=== PATIENT | male | born 1975 | race Caucasian/White ===

== ENCOUNTER 2018-04-18 22:28 | Outpatient (REF) | payer BC, SELFPAY ==
[2018-04-18 22:56] LABS: C-Reactive Protein 0.18 mg/dL (0.0-0.3)
[2018-04-18 23:53] LABS: ESR 3 MM/HR (0-15)
== END 2018-04-18 22:48 ==
LOC: NCHCN 22:28
PROVIDERS: PCP Internal Medicine; Visit Provider Internal Medicine
DX: K30 Functional dyspepsia (principal); M25.512 Pain in left shoulder
CPT/HCPCS: 85652; 86140

== ENCOUNTER 2018-07-24 22:58 | Outpatient (REF) | payer BC, SELFPAY ==
[2018-07-24 22:48] LABS: Anion Gap 8.7 mmol/L (3-11); BUN 15 mg/dL (7-18); CO2 27.3 mmol/L (21.0-32.0); CREATININE 1.16 mg/dL (0.70-1.30); Calcium 9.3 mg/dL (8.5-10.1); Chloride 103 mmol/L (98-107); Glucose 102 mg/dL (70-100); Potassium 4.9 mmol/L (3.5-5.1); Sodium 139 mmol/L (136-145)
== END 2018-07-24 23:18 ==
LOC: NCHCN 22:58
PROVIDERS: PCP Internal Medicine; Visit Provider Registered Nurse
DX: I10 Essential (primary) hypertension (principal)
CPT/HCPCS: 80048

== ENCOUNTER 2018-11-05 12:30 | Outpatient (REF) | payer BC, SELFPAY ==
[2018-11-07 15:35] LABS: Chlamydia Result Negative; GC Result Negative; Specimen Description URINE
== END 2018-11-05 12:50 ==
LOC: NCHCN 12:30
PROVIDERS: PCP Internal Medicine; Visit Provider Registered Nurse
DX: Z11.3 Encounter for screening for infections with a predominantly sexual mode of transmission (principal)
CPT/HCPCS: 87491; 87591

== ENCOUNTER 2019-01-14 12:58 | Outpatient (REF) | payer BC, SELFPAY ==
[2019-01-16 09:50] LABS: Syphilis Serology (RPR) Negative (Negative)
[2019-01-16 11:55] LABS: HIV-1/2 Ag & Ab Screen Negative (NEGAT)
[2019-01-16 15:09] LABS: Chlamydia Result Negative; GC Result Negative; Specimen Description URINE
== END 2019-01-14 13:18 ==
LOC: NCHCN 12:58
PROVIDERS: PCP Internal Medicine; Visit Provider Registered Nurse
DX: Z11.3 Encounter for screening for infections with a predominantly sexual mode of transmission (principal); Z11.4 Encounter for screening for human immunodeficiency virus [HIV]; Z11.59 Encounter for screening for other viral diseases
CPT/HCPCS: 86706; 86803; 87389; 87491; 87591; 86592; 86694; 86695; 86696

== ENCOUNTER 2019-05-05 10:54 | Outpatient (REF) | payer BC, SELFPAY ==
[2019-05-05 21:43] LABS: Hemoglobin A1C 5.9 % (3.8-5.6)
[2019-05-05 21:47] LABS: Calculated LDL 157 mg/dL (<100); Cholesterol 212 mg/dL (<200); HDL Cholesterol 40 mg/dL (40-60); Triglyceride 75 mg/dL (<150)
== END 2019-05-05 11:14 ==
LOC: NCHCN 10:54
PROVIDERS: PCP Registered Nurse; Visit Provider Registered Nurse
DX: E78.5 Hyperlipidemia, unspecified (principal); R25.1 Tremor, unspecified; Z13.1 Encounter for screening for diabetes mellitus; Z83.3 Family history of diabetes mellitus
CPT/HCPCS: 80061; 83036

== ENCOUNTER 2019-05-22 13:20 | Outpatient (REF) | payer BC, SELFPAY ==
[2019-05-22 22:05] LABS: Bacteria Negative HPF (Negative); C & S Indicated? No; Casts Negative LPF (Negative); Crystals Negative HPF (Negative); Epithelial Cells Negative HPF (Negative); Mucus Negative (Negative); Other Cells Negative (Negative); RBC Negative HPF (0-2); WBC 0-2 HPF (0-5)
== END 2019-05-22 13:40 ==
LOC: NCHCN 13:20
PROVIDERS: PCP Registered Nurse; Visit Provider Registered Nurse
DX: Z87.442 Personal history of urinary calculi (principal)
CPT/HCPCS: 81015

== ENCOUNTER 2019-08-04 12:47 | Outpatient (REF) | payer BC, SELFPAY | END 2019-08-04 13:07 | LOC: NCHCN 12:47 | PROVIDERS: PCP Registered Nurse; Visit Provider Nurse Practitioner Community Health | DX: R31.9 Hematuria, unspecified (principal) | CPT/HCPCS: 87077; 87086; 87186 ==

== ENCOUNTER 2019-08-25 22:17 | Outpatient (REF) | payer BC, SELFPAY ==
[2019-08-25 20:56] LABS: Abs Immature Grans 0.01 k/cumm (0.0-0.09); Absolute Basophil Count 0.03 k/cumm (0.0-0.2); Absolute Lymphocyte Count 1.51 k/cumm (1.2-3.4); Absolute Monocyte Count 0.62 k/cumm (0.11-0.7); Basophils % 0.4; Eosinophils % 2.6; HCT 44.6 % (40.0-50.0); HGB 15.3 g/dL (13.5-17.5); Immature Grans % 0.1 %; Lymphocytes % 19.9; Mean Corp. HGB Concentration 34.3 g/dL (32.0-36.0); Mean Corpuscular Hemoglobin 29.4 pg (27.0-33.0); Mean Corpuscular Volume 85.8 fL (80-95); Mean Platelet Volume 10.3 fL (8.0-11.0); Monocytes % 8.2; Neutrophils % 68.8; Platelet Count 340 x1000/uL (130-400); RBC Distribution Width 13.3 % (11.8-14.1); White Blood Cell Count 7.57 k/cumm (4.4-10.8)
[2019-08-25 21:12] LABS: Iron 100 ug/dL (65-175); Total Iron Binding Capacity 310 ug/dL (250-450); Transferrin Sat 32 % (20-55)
[2019-08-25 21:23] LABS: ALT 41 U/L (16-63); AST 22 U/L (15-37); Albumin 4.2 g/dL (3.4-5.0); Alkaline Phosphatase 54 U/L (46-116); Anion Gap 11.3 mmol/L (3-11); BUN 18 mg/dL (7-18); Bilirubin, Total 0.3 mg/dL (0.2-1.0); CO2 23.7 mmol/L (21.0-32.0); CREATININE 1.02 mg/dL (0.70-1.30); Calcium 8.7 mg/dL (8.5-10.1); Chloride 108 mmol/L (98-107); Ferritin 112 ng/mL (26-388); Glucose 97 mg/dL (74-106); Potassium 4.5 mmol/L (3.5-5.1); Sodium 143 mmol/L (136-145); TSH (W/Ref FT4) 0.95 uIU/mL (0.36-3.74)
== END 2019-08-25 22:37 ==
LOC: NCHCN 22:17
PROVIDERS: PCP Registered Nurse; Visit Provider Nurse Practitioner Community Health
DX: R19.7 Diarrhea, unspecified (principal); R31.9 Hematuria, unspecified; G47.62 Sleep related leg cramps
CPT/HCPCS: 80053; 87329; 87505; 82728; 83540; 83550; 84443; 85025; 87324

== ENCOUNTER 2020-12-01 12:13 | Outpatient (REF) | payer BC, SELFPAY ==
[2020-12-01 14:44] LABS: Anion Gap 10.5 mmol/L (3-11); BUN 14 mg/dL (7-18); CO2 23.5 mmol/L (21.0-32.0); CREATININE 1.1 mg/dL (0.70-1.30); Calcium 8.7 mg/dL (8.5-10.1); Calculated LDL 180 mg/dL (<100); Chloride 107 mmol/L (98-107); Cholesterol 235 mg/dL (<200); Glucose 102 mg/dL (74-106); HDL Cholesterol 42 mg/dL (40-60); Potassium 4.4 mmol/L (3.5-5.1); Sodium 141 mmol/L (136-145); Triglyceride 66 mg/dL (<150)
== END 2020-12-01 12:14 | disposition home or self-care (01) ==
LOC: NCHCN 12:13
PROVIDERS: PCP Registered Nurse; Visit Provider Registered Nurse
DX: E78.5 Hyperlipidemia, unspecified (principal); I10 Essential (primary) hypertension
CPT/HCPCS: 80048; 80061

== ENCOUNTER 2020-12-02 11:01 | Outpatient (REF) | payer BC, SELFPAY ==
[2020-12-06 15:32] LABS: Chlamydia Result Negative (Negative); GC Result Negative (Negative)
== END 2020-12-02 11:02 | disposition home or self-care (01) ==
LOC: NCHCN 11:01
PROVIDERS: PCP Registered Nurse; Referring Provider Registered Nurse; Visit Provider Registered Nurse
DX: Z11.3 Encounter for screening for infections with a predominantly sexual mode of transmission (principal)
CPT/HCPCS: 87491; 87591

== ENCOUNTER 2021-06-15 18:39 | Outpatient (REF) | payer BC, SELFPAY ==
[2021-06-15 21:48] LABS: HCT 45.6 % (40.0-50.0); HGB 15.2 g/dL (13.5-17.5); MCH 28.7 pg (27.0-33.0); MCHC 33.3 % (32.0-36.0); MCV 86.2 fL (80-95); MPV 10.2 fL (8.0-11.0); Platelet Count 308 10^3/uL (130-400); RBC 5.29 10^6/uL (4.36-5.78); RDW 12.6 % (11.8-14.1); RDW-SD 39.9 fL
[2021-06-15 22:11] LABS: ALT 43 U/L (16-63); AST 19 U/L (15-37); Albumin 4.4 g/dL (3.4-5.0); Alkaline Phosphatase 55 U/L (46-116); Anion Gap 8.5 mmol/L (3-11); BUN 21 mg/dL (7-18); Bilirubin, Total 0.3 mg/dL (0.2-1.0); CO2 25.5 mmol/L (21.0-32.0); CREATININE 1.2 mg/dL (0.70-1.30); Calcium 8.9 mg/dL (8.5-10.1); Chloride 106 mmol/L (98-107); Glucose 86 mg/dL (74-106); Potassium 4.6 mmol/L (3.5-5.1); Sodium 140 mmol/L (136-145); Total Protein 7.4 g/dL (6.4-8.2)
[2021-06-16 14:46] LABS: Vitamin B12 445 pg/mL (193-986)
== END 2021-06-15 18:40 | disposition home or self-care (01) ==
LOC: NCHCN 18:39
PROVIDERS: PCP Registered Nurse; Visit Provider Registered Nurse
DX: R19.7 Diarrhea, unspecified (principal); K90.9 Intestinal malabsorption, unspecified
CPT/HCPCS: 80053; 82306; 85027; 82607

== ENCOUNTER 2021-06-24 13:05 | Outpatient (REF) | payer BC, SELFPAY ==
[2021-06-26 10:42] LABS: HIV-1/2 Ag & Ab Screen Negative (Negative)
[2021-06-27 11:26] LABS: Syphilis Serology (RPR) Negative (Negative)
[2021-06-27 15:03] LABS: Chlamydia Result Negative (Negative); GC Result Negative (Negative)
== END 2021-06-24 13:06 | disposition home or self-care (01) ==
LOC: NCHCN 13:05
PROVIDERS: PCP Registered Nurse; Visit Provider Registered Nurse
DX: Z11.3 Encounter for screening for infections with a predominantly sexual mode of transmission (principal); Z11.4 Encounter for screening for human immunodeficiency virus [HIV]
CPT/HCPCS: 87389; 87491; 87591; 86592

== ENCOUNTER 2021-11-08 15:37 | Outpatient (REF) | payer BC, SELFPAY ==
[2021-11-08 21:36] LABS: C Diff PCR Negative (Negative)
[2021-11-10 00:08] LABS: Campylobacter PCR Negative (Negative); Salmonella PCR Negative (Negative); Shiga Toxin PCR Negative (Negative); Shigella/Enteroinvasive Ecoli Negative (Negative)
[2021-11-11 17:32] LABS: Giardia Ag, F Negative (Negative)
[2021-11-11 22:49] LABS: Calprotectin <50.0 mcg/g
[2021-11-12 18:05] LABS: Pancreatic Elastase, F 176 mcg/g
== END 2021-11-08 15:38 | disposition home or self-care (01) ==
LOC: LBN 15:37
PROVIDERS: PCP Registered Nurse; Visit Provider Nurse Practitioner
DX: R19.7 Diarrhea, unspecified (principal); R15.1 Fecal smearing; K92.1 Melena; R10.13 Epigastric pain; R14.0 Abdominal distension (gaseous); R11.0 Nausea
CPT/HCPCS: 87329; 87493; 87505; 82656; 83993

== ENCOUNTER 2022-06-30 14:58 | Outpatient (REF) | payer BC, SELFPAY ==
[2022-07-01 14:23] LABS: Chlamydia Result Negative (Negative); GC Result Negative (Negative)
== END 2022-06-30 14:59 | disposition home or self-care (01) ==
LOC: NCHCN 14:58
PROVIDERS: PCP Registered Nurse; Visit Provider Family Medicine
DX: Z11.3 Encounter for screening for infections with a predominantly sexual mode of transmission (principal)
CPT/HCPCS: 87491; 87591

== ENCOUNTER 2022-07-05 15:44 | Outpatient (REF) | payer BC, SELFPAY ==
[2022-07-05 16:16] LABS: Hemoglobin A1C 5.9 % (<5.7)
[2022-07-05 16:24] LABS: Anion Gap 6.5 mmol/L (3-11); BUN 20 mg/dL (7-18); CO2 27.5 mmol/L (21.0-32.0); CREATININE 1.3 mg/dL (0.70-1.30); Calcium 9.2 mg/dL (8.5-10.1); Calculated LDL 169 mg/dL (<100); Chloride 106 mmol/L (98-107); Cholesterol 235 mg/dL (<200); Estimated GFR 68.19 (mL/min/1.73m2); Glucose 109 mg/dL (74-106); HDL Cholesterol 48 mg/dL (40-60); Potassium 4.9 mmol/L (3.5-5.1); Sodium 140 mmol/L (136-145); Triglyceride 94 mg/dL (<150)
[2022-07-05 17:18] LABS: Vitamin D 25 Total 17.1 ng/mL (30-100)
== END 2022-07-05 15:45 | disposition home or self-care (01) ==
LOC: NCHCN 15:44
PROVIDERS: PCP Registered Nurse; Visit Provider Registered Nurse
DX: R73.03 Prediabetes (principal); I10 Essential (primary) hypertension; E55.9 Vitamin D deficiency, unspecified
CPT/HCPCS: 80048; 80061; 82306; 83036

== ENCOUNTER 2023-07-10 14:34 | Outpatient (REF) | payer BC, SELFPAY ==
[2023-07-10 21:22] LABS: Anion Gap 11.9 mmol/L (3-11); BUN 14 mg/dL (7-18); CO2 24.1 mmol/L (21.0-32.0); CREATININE 1.1 mg/dL (0.70-1.30); Calcium 9.1 mg/dL (8.5-10.1); Chloride 107 mmol/L (98-107); Estimated GFR 82.81 (mL/min/1.73m2); Glucose 96 mg/dL (74-106); Sodium 143 mmol/L (136-145)
[2023-07-10 21:44] LABS: Hemoglobin A1C 5.9 % (<5.7)
[2023-07-12 13:28] LABS: Calculated LDL 115 mg/dL (<160); Cholesterol 200 mg/dL (<200); HDL Cholesterol 41 mg/dL (>or=40); Triglyceride 219 mg/dL (<or=150)
== END 2023-07-10 14:35 | disposition home or self-care (01) ==
LOC: NCHCN 14:34
PROVIDERS: PCP Registered Nurse; Visit Provider Family Medicine
DX: R73.03 Prediabetes (principal); E78.5 Hyperlipidemia, unspecified
CPT/HCPCS: 80048; 80061; 83036

== ENCOUNTER 2023-12-09 14:46 | Emergency (ER) | payer BC, SELFPAY ==
[2023-12-09 14:51] VITALS: BP 145/80; PULSE 83; RESP 88; TEMP 36.8; O2SAT 98
[2023-12-09 15:00] VITALS: O2SAT 100
--- NOTE | 2023-12-09 15:00 | DI.CT_ITS ---
Exam(s) CT RENAL COLIC WO EXAM: CT RENAL COLIC WO CLINICAL HISTORY: flank pain. TECHNIQUE: Imaging Protocol: Axial computed tomography images with coronal and sagittal reformatted images were created and reviewed CONTRAST MATERIAL: Intravenous: none Oral: None COMPARISON: No exams were available for comparison FINDINGS: VISUALIZED LUNG BASES: No nodules nor pleural effusions evident. Some scarring or atelectasis noted in both lung bases. ABDOMEN: There is no ascites. LIVER: There are no obvious focal hepatic lesions evident of this noninfused study. GALLBLADDER/BILIARY: No obvious gallbladder pathology. CBD is not dilated. PANCREAS: No evidence of pancreatic mass nor dilatation of the pancreatic duct. SPLEEN: Spleen is not enlarged. No obvious intrasplenic lesions. Few calcified splenic granulomas a re incidentally noted. ADRENALS: There are no significant adrenal masses. KIDNEYS:Bilateral nephrolithiasis. Multiple small less than 3 millimeter calculi noted in the kidney s. However, on the left side there is a calculus at the ureteropelvic junction with mild dilatation above this level. This calculus in the upper left ureter measures approximately 3-4 mm. There is mi ld dilatation of the ipsilateral renal pelvis and mild left-sided perinephric streaking noted. The l eft ureter below the level of the calculus is not dilated there are no calculi at the ureterovesical junctions nor within the lumen of the nondistended urinary bladder. ABDOMINAL AORTA: Abdominal aorta is not enlarged. LYMPH NODES: There is no retroperitoneal nor paraaortic adenopathy. ABDOMINAL WALL: No evidence of significant anterior abdominal wall nor inguinal hernia. GI: There is no evidence of bowel obstruction, free air, nor abscess. PELVIS: LYMPH NODES: There is no intrapelvic nor inguinal adenopathy. GI: No evidence of appendicitis.There is sigmoid diverticuli. No evidence of diverticulitis. URINARY BLADDER: Bladder size minimally prominent. No focal findings in the bladder. REPRODUCTIVE: Prostate size normal. Seminal vesicles unremarkable. OSSEOUS: No significant osseous lesions. There are bilateral pars defects at L5 level with 1 cm anterolisthesis L5 upon S1 and disc space narr owing at this level. Other levels exhibit normal disc height. IMPRESSION: 1. The main acute finding is a 3-4 millimeter calculus in the upper left ureter at the ureteropelvic junction. There is mild dilatation of the upper left collecting system above this level. There are no additional calculi lower down in the left ureter nor within the urinary bladder lumen. 2. There are multiple remaining small calculi in both kidneys. Mild perinephric streaking on the aff ected left side is noted Other findings as above. Report called by myself to ER physician 12/09/2023 at 4 39 p.m. RADIATION DOSE DELIVERED: 796.68mGy.cm Total DLP DATA REPOSITORY: All CT scans at this facility are submitted to the National Radiology Data Registry (NRDR) Dose Index Registry (DIR) with the [employer] ([employer]). RADIATION OPTIMIZATION: All CT scans at this facility use at least one of these dose optimization te chniques: automated exposure control; mA and/or kV adjustment per patient size (includes targeted exa ms where dose is matched to clinical indication); or iterative reconstruction.
[2023-12-09 15:01] VITALS: BP 170/90; PULSE 86; O2SAT 100
[2023-12-09] MEDS: Ondansetron 4 MG/2 ML VIAL IVP (15:20)
[2023-12-09] MEDS: Normal Saline 1,000 ML 1000 ML IV ×2 (15:20→16:55)
[2023-12-09] MEDS: Ketorolac 15 MG/ML VIAL 10 MG IVP (15:20)
[2023-12-09 15:35] LABS: Abs Immature Grans 0.04 10^3/uL (0.0-0.06); Absolute Eosinophil Count 0.11 10^3/uL (0.0-0.7); Absolute Lymphocyte Count 1.75 10^3/uL (1.2-3.4); Absolute Monocyte Count 0.77 10^3/uL (0.1-0.8); Basophils % 0.3 %; Eosinophils % 0.8 %; HCT 45.4 % (40.0-50.0); HGB 15.9 g/dL (13.5-17.5); Immature Grans % 0.3 %; Lymphocytes % 12.2 %; MCH 30.1 pg (27.0-33.0); MCV 86 fL (80-95); MPV 10.2 fL (8.0-11.0); Monocytes % 5.4 %; Platelet Count 301 10^3/uL (130-400); RBC 5.29 10^6/uL (4.36-5.78); RDW 12.6 % (11.8-14.1); RDW-SD 39.4 fL; WBC 14.35 10^3/uL (4.4-10.8)
[2023-12-09 15:41] LABS: Absolute Basophil Count 0.04 10^3/uL (0.0-0.2); Absolute Neutrophil Count 11.62 10^3/uL (1.2-6.7)
[2023-12-09 15:44] LABS: ALT 63 U/L (16-63); AST 29 U/L (15-37); Albumin 4.6 g/dL (3.4-5.0); Alkaline Phosphatase 77 U/L (46-116); BUN 19 mg/dL (7-18); Bilirubin, Total 0.58 mg/dL (0.2-1.0); CREATININE 1.4 mg/dL (0.70-1.30); Calcium 9.9 mg/dL (8.5-10.1); Chloride 101 mmol/L (98-107); Estimated GFR 61.61 (mL/min/1.73m2); Glucose 128 mg/dL (74-106); Potassium 3.7 mmol/L (3.5-5.1); Sodium 140 mmol/L (136-145); Total Protein 8.1 g/dL (6.4-8.2)
--- NOTE | 2023-12-09 15:58 | ED.GENADUL_ITS ---
Discharge Plan Disposition Patient Disposition: Home Condition: Stable Discharge Details Clinical Impression: Left renal stone Primary Care Provider: Josie Conroy ED Provider: Vinay Scott Home Meds and New Rx's Prescriptions: New ondansetron 4 mg tablet,disintegrating 4 mg PO Q8H PRN (Reason: nausea and vomiting) Qty: 20 0RF tamsulosin [Flomax] 0.4 mg capsule 0.4 mg PO DAILY Qty: 30 0RF Discharge Instructions Instructions: Kidney stones in adults Additional Instructions: * Please strain your urine to monitor for passage * Please keep your follow-up appointment with urology as scheduled tomorrow * Pain and nausea medication were given to go home with. You can also take motrin or tylenol at home. Flomax and additional nausea medication prescriptions have been sent to your pharmacy * Return if you are unable to pass urine, you are not tolerating medications by mouth or you have severe pain. Discharge Data Discharge Date/Time-TO BE ENTERED AT DEPARTURE: 12/09/23 18:41 HPI General Date/Time Provider Initiated Documentation: 12/09/23 15:11 . Limitations to Documentation: no limitations . Information obtained by: patient . HPI Narrative: 48-year-old gentleman with past medical history of renal colic presents for evaluation of severe left-sided flank pain. Onset of symptoms about 3 hours ago. Symptoms are severe, waxing and waning in severity. Associated with vomiting. He reports that he has not been able to urinate since onset of symptoms. He reports that he has had a prior kidney stone that required hospitalization several years ago and he states that the pain today is the same as that kidney stone. Related Data Home Medications ?Medication ?Instructions ?Recorded ?Confirmed ondansetron 4 mg disintegrating 4 mg PO Q8H PRN nausea and 12/09/23 tablet vomiting #20 tabs tamsulosin 0.4 mg capsule (Flomax) 0.4 mg PO DAILY #30 caps 12/09/23 Previous Rx's ?Medication ?Instructions ?Recorded ondansetron 4 mg disintegrating 4 mg PO Q8H PRN nausea and 12/09/23 tablet vomiting #20 tabs tamsulosin 0.4 mg capsule (Flomax) 0.4 mg PO DAILY #30 caps 12/09/23 Allergies Allergy/AdvReac Type Severity Reaction Status Date / Time No Known Allergies Allergy Unverified 12/09/23 14:52 General Stated Complaint: FlankPain VICTORIANO: 3 Exam Narrative Exam Narrative: Review of Systems: All systems reviewed & are unremarkable except as noted in HPI and below Well-developed, appears uncomfortable NCAT RRR Unlabored respiratory effort Nondistended abdomen , nontender, no CVA tenderness Course Vital Signs Vital signs: Vital Signs Temperature 36.8 C 12/09/23 14:51 Pulse 83 12/09/23 14:51 Respiratory Rate 88 H 12/09/23 14:51 Blood Pressure 145/80 H 12/09/23 14:51 Pulse Oximetry 98 12/09/23 14:51 Temperature 36.8 C 12/09/23 14:51 Pulse 86 12/09/23 15:01 Respiratory Rate 88 H 12/09/23 14:51 Respiratory Effort Normal, Non-Labored 12/09/23 15:00 Blood Pressure 170/90 H 12/09/23 15:01 Blood Pressure Mean 112 12/09/23 15:01 Pulse Oximetry 100 12/09/23 15:01 Pain Level 10 12/09/23 15:00 Lab/Test Results Lab/Test Results: Laboratory Tests Range/Units 12/09/23 15:00 WBC (4.4-10.8) 10^3/uL 14.35 H RBC (4.36-5.78) 10^6/uL 5.29 Hgb (13.5-17.5) g/dL 15.9 Hct (40.0-50.0) % 45.4 MCV (80-95) fL 86 MCH (27.0-33.0) pg 30.1 MCHC (32.0-36.0) % 35.0 RDW (11.8-14.1) % 12.6 Plt Count (130-400) 10^3/uL 301 MPV (8.0-11.0) fL 10.2 Immature Gran % % 0.3 Neutrophils % % 81.0 Lymphocytes % % 12.2 Monocytes % % 5.4 Eosinophils % % 0.8 Basophils % % 0.3 Nucleated RBC % (0.0-0.3) % 0.0 Absolute Neutrophils (1.2-6.7) 10^3/uL 11.62 H Absolute Lymphocytes (1.2-3.4) 10^3/uL 1.75 Absolute Monocytes (0.1-0.8) 10^3/uL 0.77 Absolute Eosinophils (0.0-0.7) 10^3/uL 0.11 Absolute Basophils (0.0-0.2) 10^3/uL 0.04 Sodium (136-145) mmol/L 140 Potassium (3.5-5.1) mmol/L 3.7 Chloride (98-107) mmol/L 101 Carbon Dioxide (21.0-32.0) mmol/L 24.0 Anion Gap (3-11) mmol/L 15.0 H BUN (7-18) mg/dL 19 H Creatinine (0.70-1.30) mg/dL 1.4 H Est GFR (CKD-EPI 2020) (mL/min/1.73m2) 61.61 Glucose (74-106) mg/dL 128 H Calcium (8.5-10.1) mg/dL 9.9 Total Bilirubin (0.2-1.0) mg/dL 0.58 AST (15-37) U/L 29 ALT (16-63) U/L 63 Alkaline Phosphatase (46-116) U/L 77 Total Protein (6.4-8.2) g/dL 8.1 Albumin (3.4-5.0) g/dL 4.6 Medical Decision Making Emergent evaluation of flank pain. Initial differential includes renal colic, constipation, less likely bowel obstruction. The patient has history of renal colic and symptoms are similar to his prior episodes. He is requesting fentanyl for pain control as he states that the only thing that works. Plan for labs, urinalysis and CT imaging. 1645 Lab work reviewed. There is mild leukocytosis of 14. Could be stress shift fr om vomiting. Creatinine is 1.4 which is slightly above the patient's baseline of 1.1 he has been given IV fluids. Initial pain relief not achieved with Toradol. IV droperidol has been given. A 3 to 4 mm stone in the left UPJ.I discussed CT findings with the radiologist. Final disposition pending urinalysis and reevaluation of pain control. patient currently comfortable and pain resolved after IV medication. patient DC'd with morphine IR, zofran to go bottles. flomax and zofran rx sent to pharmacy. [place] [facility] [place] advised to keep this appointment. RTER precautions given. Quality:SDOH Health Related Social Needs: No Data to Display PFSH All Active Problems (Updated 12/09/23 @ 16:54 by Vinay Scott MD) Left renal stone (Acute) Social History Smoking/Tobacco Use Status: Current every day Tobacco Type: cigarettes Smoking risk assessment performed?: Yes Alcohol Intake: current Alcohol Intake frequency: holidays/special occasions only Alcohol type: beer Drug use: Never Substance use type: does not use Housing: house Do you feel safe at home: Yes Do you feel safe in your relationship?: Yes
[2023-12-09] MEDS: Droperidol 5 MG/2 ML VIAL IM (16:33)
[2023-12-09] MEDS: Tamsulosin 0.4 MG CAPCR PO ×2 (16:34→18:40)
[2023-12-09 17:12] LABS: Bilirubin Negative (Negative); Blood Small (Negative); Clarity Clear (Clear); Glucose Negative (Negative); Ketones 15 mg/dL (Negative); Leukocyte Esterase Negative (Negative); Nitrite Negative (Negative)
[2023-12-09 17:38] LABS: Bacteria Negative HPF (Negative); C & S Indicated? No; Casts Negative LPF (Negative); Crystals Negative HPF (Negative); Epithelial Cells Rare HPF (Negative); Mucus Negative (Negative); WBC Negative HPF (0-5)
[2023-12-09] MEDS: MORPHine IR 15 MG TAB, 4 TABS/BTL PO (17:52)
[2023-12-09] MEDS: Ondansetron O.D.T. 4 MG TABEF, 3 TABS/BTL PO (17:52)
[2023-12-09 18:23] VITALS: BP 145/92; PULSE 70; RESP 16; TEMP 36.2; O2SAT 100
== END 2023-12-09 18:41 | disposition home or self-care (01) ==
LOC: ER 17:12
PROVIDERS: Emergency Provider Emergency Medicine; PCP Registered Nurse
DX: N20.2 Calculus of kidney with calculus of ureter (principal); F17.210 Nicotine dependence, cigarettes, uncomplicated
CPT/HCPCS: 36415; 80053; 96361; 96372; 96374; 96375; 99284; 74176; 81003; 81015; 85025; J1790; J1885; J2405

== ENCOUNTER 2024-02-11 16:17 | Outpatient (REF) | payer BC, SELFPAY ==
[2024-02-11 21:27] LABS: Calculated LDL 62 mg/dL (<100); Cholesterol 149 mg/dL (<200); HDL Cholesterol 49 mg/dL (40-60); Triglyceride 193 mg/dL (<150)
== END 2024-02-11 16:18 | disposition home or self-care (01) ==
LOC: NCHCN 16:17
PROVIDERS: PCP Registered Nurse; Visit Provider Family Medicine
DX: E78.5 Hyperlipidemia, unspecified (principal)
CPT/HCPCS: 80061

== ENCOUNTER 2024-09-18 14:01 | Outpatient (REF) | payer BC, SELFPAY ==
--- NOTE | 2024-09-18 09:30 | SKI_PTH ---
PATIENT: Elmo Bishop LOC: [facility]#:[id number] AGE/SX: 48/M ROOM: RE09/18/[address]: Cee Ang : 1975 BED: DIS: 09/18/2024 SPEC #: [id number] RECD: 09/18/24 15:19 STATUS: PAULO REQ #: [id number] [place]: 09/18/24 09:[address]: Cee Ang DEPT: Surgical Specimen RECD BY: Jessica Rick ENTERED: 09/18/24 15:20 SP TYPE: SKI OTHR DR: Josie Conroy Tissues: 1 - SKIN BIOPSY(SHAVE/PUNCH) 2 - SKIN BIOPSY(SHAVE/PUNCH) Procedures: SKIN LEVEL 4 Comments: [id number]
== END 2024-09-18 14:02 | disposition home or self-care (01) ==
LOC: NCHCN 14:01
PROVIDERS: PCP Registered Nurse; Visit Provider Family Medicine
DX: L82.1 Other seborrheic keratosis (principal); D22.9 Melanocytic nevi, unspecified
CPT/HCPCS: 88305

== ENCOUNTER 2025-01-01 11:28 | Outpatient (CLI) | payer BC, SELFPAY ==
--- NOTE | 2025-01-01 | DI.RAD_ITS ---
Exam(s) XR CHEST 2V PA LATERAL EXAM: XR CHEST 2V PA LATERAL CLINICAL HISTORY: PERSISTENT PNEUMONIA, J18.9 TECHNIQUE: 2D digital imaging was performed. Two views. COMPARISON: No exams were available for comparison FINDINGS: HEART: Normal size. Aorta: Not dilated. PULMONARY VASCULATURE: Normal. MEDIASTINUM: Unremarkable. LUNGS: Clear. PLEURAL SPACE: No pleural effusion or pneumothorax. BONE:Unremarkable for age. SOFT TISSUES: Unremarkable. IMPRESSION: No acute abnormality. DATA REPOSITORY: RADIATION DOSE DELIVERED:
== END 2025-01-01 11:48 ==
LOC: DI 11:29
PROVIDERS: PCP Registered Nurse; Visit Provider Physician Assistant
DX: J18.9 Pneumonia, unspecified organism (principal)
CPT/HCPCS: 71046

== ENCOUNTER 2025-01-01 20:24 | Outpatient (REF) | payer BC, SELFPAY | END 2025-01-01 20:25 | disposition home or self-care (01) | LOC: NCHCN 20:24 | PROVIDERS: PCP Registered Nurse; Visit Provider Physician Assistant | DX: J18.9 Pneumonia, unspecified organism (principal) | CPT/HCPCS: 87070; 87205 ==

== ENCOUNTER 2025-02-25 12:02 | Outpatient (REF) | payer BC, SELFPAY ==
[2025-02-25 16:27] LABS: ALT 34 U/L (10-49); AST 28 U/L (<34); Albumin 4.8 g/dL (3.2-5.0); Alkaline Phosphatase 65 U/L (46-116); Anion Gap 8.1 mmol/L (3-11); BUN 22 mg/dL (9-23); Bilirubin, Total 0.6 mg/dL (0.2-1.2); CO2 28.9 mmol/L (20.0-31.0); Calcium 9.7 mg/dL (8.3-10.6); Chloride 105 mmol/L (98-107); Glucose 93 mg/dL (74-106); Potassium 4.4 mmol/L (3.5-5.1); Sodium 142 mmol/L (136-145); Total Protein 7.6 g/dL (5.7-8.2)
[2025-02-25 16:28] LABS: TSH 1.38 uIU/mL (0.55-4.78); Vitamin B12 680 pg/mL (211-911)
[2025-02-25 16:29] LABS: Folate 19.1 ng/mL (>5.38)
[2025-02-25 19:02] LABS: Vitamin D 25 Total > 150 ng/mL (30-100)
== END 2025-02-25 12:03 | disposition home or self-care (01) ==
LOC: NCHCN 12:02
PROVIDERS: PCP Registered Nurse; Visit Provider Family Medicine
DX: R79.89 Other specified abnormal findings of blood chemistry (principal); R41.89 Other symptoms and signs involving cognitive functions and awareness; N18.2 Chronic kidney disease, stage 2 (mild)
CPT/HCPCS: 80053; 82306; 82607; 82746; 84443